=== PATIENT | male | born 1995 | race Caucasian/White ===

== ENCOUNTER 2016-12-23 21:03 | Emergency (ER) | payer SELFPAY ==
[2016-12-23 21:17] VITALS: BP 129/84
[2016-12-23] MEDS ORDERED: BOOSTRIX IM ONE (21:51)
[2016-12-23] MEDS ORDERED: NORCO 5/325 PO ONE (21:51)
--- NOTE | 2016-12-23 22:01 | XRay Report ---
FINAL REPORT EXAM: XR WRIST 3 LT HISTORY: hand and wrist pain after fall TECHNIQUE: Wrist two views PRIORS: None. FINDINGS: There is acute fracture at the tuft distal phalanx of the thumb. No radiopaque foreign bodies are identified Joint spaces are within normal limits. Carpal bones maintain normal alignment. Joint spaces are unremarkable. IMPRESSION: Fracture tuft distal phalanx of the thumb
--- NOTE | 2016-12-23 22:02 | XRay Report ---
FINAL REPORT EXAM: XR HAND 3 LT HISTORY: hand and wrist pain after fall TECHNIQUE: Two views of the left hand PRIORS: None. FINDINGS: There is acute fracture tuft distal phalanx of the thumb. No radiopaque foreign bodies are observed. The joint spaces are within normal limits. Remaining bony structures demonstrate no acute change in the views obtained. IMPRESSION: Fracture tuft distal phalanx of the thumb
--- NOTE | 2016-12-23 22:06 | Emergency Department Report ---
Upper Extremity - HPI Chief Complaint: Fall Stated Complaint: FALL Time Seen by Provider: 12/23/16 21:40 Upper Extremity: Left Forearm, Left Wrist, Left Hand, Left Thumb Occurred When: Today Mechanism: Fall Severity: severe Symptoms: Yes Pain with Movement, Yes Limited Range of Movement, Yes Swelling, Yes Bruising/Ecchymosis, Yes Laceration or Abrasion, No Deformity, No Numbness Other History: Patient comes into the ER today with complaints of left hand, left wrist and left forearm pain following a skateboarding accident approximately 2 hours ago. Patient denies any loss of consciousness, neck pain , vomiting, confusion. Patient primarily complaining of left wrist and thumb pain. Patient is unsure of last tetanus vaccine. Does not take anything for the pain since injury. ED Review of Systems ROS: Stated complaint: FALL Other details as noted in HPI Constitutional: denies: chills, fever Eyes: denies: eye pain, eye discharge, vision change ENT: denies: ear pain, throat pain Respiratory: denies: cough, shortness of breath, wheezing Cardiovascular: denies: chest pain, palpitations Endocrine: no symptoms reported Gastrointestinal: denies: abdominal pain, nausea, diarrhea Genitourinary: denies: urgency, dysuria Musculoskeletal: joint swelling, arthralgia. denies: back pain Skin: denies: rash, lesions Neurological: denies: headache, weakness, numbness, paresthesias, confusion, abnormal gait, vertigo Psychiatric: denies: anxiety, depression Hematological/Lymphatic: denies: easy bleeding, easy bruising ED Past Medical Hx - Past Medical History Previous Medical History?: No - Surgical History Past Surgical History?: No - Social History Smoking Status: Never Smoker Substance Use Type: None - Medications Home Medications: Home Medications Medication Instructions Recorded Confirmed Last Taken Type Cephalexin [Keflex] 500 mg PO TID #30 cap 12/23/16 Unknown Rx HYDROcodone/APAP 5-325 [[place] 1 each PO Q4HR PRN #18 tablet 12/23/16 Unknown Rx 5/325] Naproxen [Naprosyn TAB] 500 mg PO BID #20 tablet 12/23/16 Unknown Rx Upper Extremity Exam - Exam General: Vital signs noted. No distress. Alert and acting appropriately. Head and Torso: No HEENT Abnormality, No Neck Tenderness, No Chest/Lungs Abnormality, No Abdominal Tenderness, No Back Tenderness Shoulder Exam: Yes Normal Range of Motion in Shoulder, No Shoulder Tenderness, No Clavicle Tenderness, No Shoulder Deformity, No AC Joint Tenderness Arm Exam: No Arm/Humerus Tenderness, No Arm Deformity Elbow: No Elbow Tenderness, No Normal Range of Motion in Elbow, No Elbow Deformity Forearm: Yes Forearm Tenderness, Yes Pain with Pronation, Yes Pain with Supination, No Forearm Deformity Wrist: Yes Wrist Tenderness, Yes Normal ROM in Wrist, Yes Snuffbox Tenderness, Yes Pain with Axial Thumb Compression, No Wrist Deformity Hand: Yes Hand Tenderness (left lateral half of hand and wrist with significant amount of soft tissue swelling, bruising and tenderness. Left distal thumb with subungual hematoma and superficial abrasions around nail. No open lacerations requiring closure.), Yes Digit Tenderness, No Hand Deformity, No Normal ROM in Digit(s), No Digit(s) Deformity, No Tendon Dysfunction CMS Exam: Yes Broken Skin, Yes Normal Distal Pulses, Yes Normal Capillary Refill , Yes Normal Distal Sensation ED Course Vital Signs 12/23/16 21:13 Temperature 98.5 F Pulse Rate 73 Respiratory 24 Rate Blood Pressure 129/84 O2 Sat by Pulse 99 Oximetry ED Medical Decision Making - Radiology Data Radiology results: image reviewed interpreted by me: No obvious wrist or hand bone pathology noted other than distal thumb tuft fracture. Significant amount of soft tissue swelling noted to wrist and hand. - Medical Decision Making Patient is nontoxic and hemodynamically stable. X-ray results reviewed and discussed with the patient in room. Patient does appear to have what our consider an open thumb fracture. I will start patient on antibiotics accordingly. Physical exam of patient is more impressive than x-ray findings. I have concern for possible subtle call for bone fracture and will place patient in Ortho-Glass thumb spica splint. Patient was given [place] and naproxen here in the ER for symptomatic relief. Patient was also given updated tetanus vaccine. I will refer patient orthopedic for further evaluation. Patient is in agreement with treatment plan and patient is stable for discharge. Critical care attestation.: If time is entered above; I have spent that time in minutes in the direct care of this critically ill patient, excluding procedure time. ED Disposition Clinical Impression: Open fracture of thumb, Wrist pain, left, Left hand pain, Fall with injury Disposition: DISCHARGED TO HOME OR SELFCARE Is pt being admited?: No Does the pt Need Aspirin: No Condition: Stable Instructions: Thumb Fracture (ED), Wrist Sprain (ED) Prescriptions: Cephalexin [Keflex] 500 mg PO TID #30 cap HYDROcodone/APAP 5-325 [[place] 5/325] 1 each PO Q4HR PRN #18 tablet PRN Reason: Pain Naproxen [Naprosyn TAB] 500 mg PO BID #20 tablet Referrals: SYDNEE PIPER MD [Staff Physician] - 3-5 Days Forms: Work/School Release Form(ED) Time of Disposition: 22:41 Print Language: GREEK
[2016-12-23] MEDS ORDERED: MOTRIN PO ONE (22:19)
[2016-12-23] MEDS ORDERED: NAPROSYN PO ONE (22:51)
== END 2016-12-23 22:51 | disposition home or self-care (01) ==
LOC: ED 21:03
DX: S62.522B Displaced fracture of distal phalanx of left thumb, initial encounter for open fracture (principal); M25.532 Pain in left wrist; M79.642 Pain in left hand; V00.131A Fall from skateboard, initial encounter; Y93.51 Activity, roller skating (inline) and skateboarding; Y99.8 Other external cause status; Y92.89 Other specified places as the place of occurrence of the external cause
CPT/HCPCS: 90471; 90715